=== PATIENT | female | born 1975 | race Caucasian/White ===

== ENCOUNTER 2024-10-31 06:26 | Day surgery (SDC) | payer OTHER, SELFPAY ==
[2024-10-31] VITALS (10 sets, daily range): BP systolic 118–151; BP diastolic 76–111; PULSE 60–83; RESP 16; TEMP 36.7–36.8; O2SAT 95–99; BMI 33.6
[2024-10-31] MEDS: BUPIVACAINE 0.5 %/EPI 1:200K INJECTION (06:33)
[2024-10-31] MEDS: LIDOCAINE 1% MDV INJECTION (06:33)
--- NOTE | 2024-10-31 07:27 | W.PM.H&PU ---
History & Physical Update History & Physical Update H&P Reviewed and patient assessed: No changes noted
--- NOTE | 2024-10-31 07:28 | PM.ORPRC ---
Procedure Note Date of procedure: 10/31/24 Procedure: PREOPERATIVE DIAGNOSIS: 1. Right carpal tunnel syndrome POSTOPERATIVE DIAGNOSIS: 1. Right carpal tunnel syndrome PROCEDURE: 1. Right open carpal tunnel release SURGEON: Amos Valdez MD. METALLURGICAL ENGINEERING TEACHER: Ivone Le P.A.-C. An assistant child care teacher was critical for this case to aid in patient positioning, tissue retraction, limb manipulation/positioning, and closure. ANESTHESIA: Local anesthetic IMPLANTS: None ESTIMATED BLOOD LOSS: 3 mL TOURNIQUET: 4 min at 250 mmHg COMPLICATIONS: None INDICATIONS: The patient is a pleasant 48-year-old female with history of right hand numbness, tingling, and pain. EMG and nerve conduction studies were consistent with moderate carpal tunnel syndrome. Symptoms were not improving with conservative treatment, and patient elected to proceed with surgical intervention consisting of right carpal tunnel release. Prior to surgery, the risks and benefits of the procedure were discussed with patient, all questions were answered, and informed consent was obtained. DESCRIPTION OF PROCEDURE: Patient was seen preoperatively and operative site was marked. The subcutaneous tissues overlying the right carpal tunnel were injected with a combination of 1% lidocaine with epinephrine and 0.5% bupivacaine. Patient was then brought to the operating room and placed in the supine position on the OR table. A tourniquet was placed on the patient's right arm and right upper extremity was prepped and draped in usual sterile fashion. A surgical time-out was performed confirming patient name, procedure, and location. A skin incision measuring approximately 3-4 cm was made in line with the ring finger extending from the distal wrist flexion crease to Barone's cardinal line. Blunt dissection was used to dissect through subcutaneous tissues and palmar fascia. To allow for better visualization, the extremity was elevated exsanguinated Esmarch and tourniquet was inflated to 250 mmHg. Transverse carpal ligament was identified and was sharply incised proximally with care taken to protect the underlying median nerve. The transverse carpal ligament was then sharply divided along its ulnar border using tenotomy scissors and a [place]ag[place] blade with care taken to protect the underlying median nerve. Once the transverse carpal ligament was divided, the antebrachial fascia was released proximally. The wound was then irrigated with normal saline, and the tourniquet was released. Total tourniquet time was for minutes. Hemostasis was achieved with bipolar electrocautery. The skin incision was closed with 4-0 nylon horizontal mattress sutures, and a sterile dressing was applied. Patient was then transferred to the recovery room in stable condition. POSTOPERATIVE PLAN: 1. Patient will be discharged to home day of surgery. 2. Ice and elevation as needed for pain and swelling. 3. Tylenol and/or ibuprofen as needed for pain. 4. They were given instructions for wound care and finger range of motion exercises. 5. Return to the clinic for follow-up evaluation in 10-14 days for wound check and suture removal.
--- NOTE | 2024-10-31 07:46 | SUR.PREOP ---
SAME DAY SURGERY LOCAL INJECTION SITE VERIFICATION WAS PERFORMED BY SURGEON/PA AND PATIENT PRIOR TO LOCAL ANESTHETIC BEING INJECTED TO OPERATIVE SITE.
[2024-10-31] MEDS: ETHYL CHLORIDE 1 APPLICATION 1 APPLIC TOPICAL (07:50)
[2024-10-31] MEDS: BACITRACIN OINTMENT BULK TUBE 1 APPLIC TOPICAL (08:05)
== END 2024-10-31 08:31 | disposition home or self-care (01) ==
PROVIDERS: PCP Physician Assistant Medical; Visit Provider Orthopaedic Surgery
PROC: (CPT 64721; principal; 2024-10-31 07:30)
DX: G56.01 Carpal tunnel syndrome, right upper limb (principal)
CPT/HCPCS: 64721; J2003; J3490

== ENCOUNTER 2024-12-28 06:22 | Day surgery (SDC) | payer BC, SELFPAY ==
[2024-12-28] VITALS (8 sets, daily range): BP systolic 118–134; BP diastolic 77–93; PULSE 58–80; RESP 16–18; TEMP 36.5; O2SAT 94–100; BMI 31.3
--- OUTSIDE RECORDS SUMMARY | 2024-12-28 06:24 | XMS_ITS | Clinical Summary ---
Author Organization [employer] [facility] Address [place], [place] [address] Care Team Providers Care General Laborer Name Role Phone Carmen Combs Primary Care Provider Allergies Active Allergy Reactions Criticality Noted Date Comments Prednisone Itching 06/06/2012 Medications * This document contains information received from the source organization and may not represent a complete record from that organization. levothyroxine (SYNTHROID) 88 mcg tabletIndications: Hypothyroidism (acquired) TAKE ONE TABLET BY MOUTH EVERY DAY BEFORE BREAKFAST 90 Tablet 2 4 Active lisinopriL (PRINIVIL; ZESTRIL) 5 mg tabletIndications: HTN (hypertension) TAKE ONE TABLET BY MOUTH ONCE DAILY 90 Tablet 1 4 Active cloNIDine HCL (CATAPRES) 0.1 mg tabletIndications: Alcoholism (HC),Alcohol withdrawal syndrome without complication (HC) Take 1 Tablet (0.1 mg) by mouth three times daily. 60 Tablet 4 Active traZODone (DESYREL) 50 mg tabletIndications: Insomnia, idiopathic Take 1-2 Tablets (50-100 mg) by mouth at bedtime. 60 Tablet 4 Active ondansetron (ZOFRAN ODT) 4 mg disintegrating tabletIndications: Nausea Place 1 Tablet (4 mg) on the tongue every 8 hours if needed for Nausea/Vomiti ng. 30 Tablet 2 4 Active Active Problems Problem Noted Date Diagnosed Date Severe episode of recurrent major depressive disorder, without psychotic features 03/14/2023 Morbid obesity with BMI of 40.0-44.9, adult 01/2022 Linda's thyroiditis 08/28/2021 Vitamin D deficiency 02/19/2011 Tobacco use disorder 01/13/2009 Papanicolaou smear of cervix with atypical squamous cells of undetermined significance (ASC-US) 11/15/2008 Major depressive disorder, recurrent episode, un specified 05/29/2007 Anxiety state, unspecified 05/29/2007 History of amphetamine abuse 05/29/2007 Amphetamine and psychostimulant dependence 05/29 ASCUS with positive high risk HPV cervical 11/28 Overview (11/15/2022): 05/2006 ASCUS/HPV+ 06/2006 [place]: Suspicious for HPV 11/2006 ASCUS/HPV+ 06/2007 NIL 11/2008 NIL 09/2012 NIL 09/2015 NIL 05/2019 NIL/HPV negative 09/2022 NIL/HPV negative. Plan: Pap/HPV due 09/2025. Resolved Problems Problem Noted Date Diagnosed Date Resolved Date , supervision for, high-risk 11/15/2008 10/03/2012 Amphetamine dependence; in r emission for 3 and 1/2 years 05/29/2007 12/17/2021 Immunizations Name Administration Dates Next Due Hepatitis B (Adult) 09/07/2017,04/05/2017,1995 MMR 05/31/1990,11/26/1981 Td (Age >=7 Years) 04/01/2003,05/31/1990 Td, Preservative Free (age >= 7 Years) 5 Tdap 10/03/2012 Family History Medical History Relation Name Comments Suicidality Brother Cancer Father adenocarcinoma Hypertension Father Cancer-breast Maternal Aunt Heart attack Mother Stroke Mother 07-19-13 Cancer-breast Paternal Grandmother Cancer-ovarian No Family History Relation Name Status Comments Brother Father (Age 62) lung cance r Maternal Aunt Mother Paternal Grandmother Social History Tobacco Use Types Packs/Day Years Used Date Smoking Tobacco: Former Cigarettes 0.5 15 1 12/30/1996 - 10/29/2012 Smokeless Tobacco: Never Tobacco Cessation:Counseling Given: Yes Comments:Quit 6 years ago Alcohol Use Standard Drinks/Week Comments Yes 3 (1 standard drink = 0.6 oz pur e alcohol) PHQ-2 Answer Date Recorded PHQ-2 TOTAL SCORE 6 07/23/2024 Social Connections Answer Date Recorded Do you often feel lonely or isolated from those around you? 0 06/25/2024 Financial Resource Strain Answer Date R ecorded Difficulty of Paying Living Expenses 3 06/25/2024 Difficulty of Paying Living Expenses Not on file 06/25/2024 Food Insecurity Answer Date Recorded Do you worry your food will run out before you are able to buy more? 1 06/25/2024 Transportation Needs Answer Date Record ed Does lack of transportation keep you from medica l appointments? 1 06/25/2024 Does lack of transportation keep you from work, meetings or getting things that you need? 1 06/25/2024 Housing Stability Answer Date Recorded What is your housing situation today? 1 06/25/2024 Utilities Answer Date Recorded Do you have trouble paying f or utilities (for example, heat, electricity, water, phone)? 1 06/25/2024 Comments No Sex and Gender Information Value Date Recorded Sex Assigned at Not on file Legal Sex Female 6:21 AM THEATRE PROGRAM DIRECTOR Gender Identity Not on file Sexual Orientation Not on file Occupation Industry Job Start Date Job End Date unemployed Not on file Not on file Not on file Obstetrics History Para Term AB IAB SAB Ectopic Multiple Livin g Live Births 4 3 3 1 1 3 Date Outcome GA Total Labor Labor/2nd/3rd Weight Sex Type Anes PTL Stephany A1 A5 Name Clin 9 Term 38w 0d 15h 00m/ 3.43 kg (7 lb 9 oz) F Vag 7 9 3 Term 39w 0d 7h 00m/ 4.35 kg (9 lb 9.4 oz) M Vag 6 8 Comments:shoulder dyst ocia, nuchal cord. 4th degree laceration 4 SAB 9 Term 39w 0d 3.32 kg (7 lb 5 oz) F Vag 7 8 Comments:fractured cla vicle Last Filed Vital Signs Vital Sign Reading Time Taken Comments Blood Pressure 137/89 09/12/2024 3:27 PM CDT Pulse 62 09/12/2024 3:27 PM CDT Temperature 36.4 C (97.5 F) 01/29/2024 12:32 PM CDT Respiratory Rate 18 01/29/2024 12:32 PM CDT Oxygen Saturation 98% 01/29/2024 12:32 PM CDT Inhaled Oxygen Concentration - - Weight 114.3 kg (252 lb) 09/12/2024 3:27 PM CDT Height 170.2 cm (5' 7) 08/05/2023 11:18 AM CDT Body Mass Index 39.47 08/05/2023 11:18 AM CDT Plan of Treatment Health Maintenance Due Date Last Done Comments Pneumococcal series for age 6-49 (1 of 2 - PCV) 1995 Tetanus booster 10/03/2022 10/03/2012, 07/16, 04/01/2003, Additional history exists COVID-19 vaccine series ( season) 2024 Influenza for age 9-49 07/15/2024 BMI (ht and wt on same day) for age 18+ 08/05/2024 08/05/2023, 06/14/2023, 03/14/2023, Additional history exists Depression screening for age 12+ 07/25/2025 07/25/2024, 07/23/2024, 07/06/2023, Additional history exists Mammogram for age 45-75 08/03/2025 08/03/20, 04/12/2023, 01/22/2022, Additional history exists Pap test for age 21-65 10/04/2025 , 10/04/2022, 06/06/2019, Additional history exists Lipids for age 45-75 02/17/2027 02/17/2022, 11/30/2019, 10/17/2018, Additional history exists Colonoscopy through age 75 11/19/203211/19, 11/19/2022, 11/19/2022, Additional history exists Tdap Completed 10/03/2012 HIV for age 15-65 Completed 08/05/2023, , 11/15/2008 Hepatitis C screening for ag e 18-79 Completed 08/05/2023, 10/04/2022 Procedures Procedure Name Priority Date/Time Associated Diagnosis Comments XR MAMMO MAGALIS BILAT SCREEN Routine 08/03/2024 3:49 PM CDT Visit for screening mammogram ANTI HIV /2 Routine 08/05/2023 12:12 PM CDT Screen for STD (sexually transmitted disease) ANTI HCV Routine 08/05/2023 12:12 PM CDT Screen for STD (sexually transmitted disease) COLONOSCOPY SCREENING Routine 11/19/2022 8:46 AM THEATRE PROGRAM DIRECTOR Chronic diarrhea Screening for colon cancer HPV HIGH RISK Routine 10/04/2022 9:58 AM THEATRE PROGRAM DIRECTOR Screening for cervical cancer LIPID PANEL W REFLEX MEASURED LDL Routine 02/17/2022 3:39 PM CDT Screening cholesterol level from Last 3 Months or Most Recently Relevant to Health Maintenance Results * XR MAMMO MAGALIS BILAT SCREEN (08/03/2024 3:49 PM CDT) Anatomical Region Laterality Modality BREASTS, Breast Left, Breast Right Bilateral Mammography Impressions 08/05/2024 9:33 AM CDT There is no radiographic evidence for malignancy. Recommend annual mammograms. MAMMOGRAM ASSESSMENT: ACR 1 Negative PATIENTS: You will also receive a letter with your examination results in an easy to read format. If you have questions about your results, please contact your referring provider. Narrative 08/05/2024 9:33 AM CDT For Patients: As a result of the Century Cures Act, medical imaging exams and procedure reports are released immediately into your electronic medical record. You may view this report before your referring provider. If you have questions, please contact your health care provider. XR MAMMO MAGALIS BILAT SCREEN [[id number]] CLINICAL HISTORY: This is an asymptomatic 48 y.o. patient. INDICATION FOR EXAM: Mammogram Screening. TECHNIQUE: CC & MLO views were obtained. This study was evaluated with the assistance of Computer-Aided Detection. Breast Tomosynthesis was used in interpretation. COMPARISON FILM: Yes 04/12/23 [employer] [facility] 01/22/22 [facility] FINDINGS: There are scattered areas of fibroglandular density. There are no dominant masses, suspicious micro calcifications or areas of architectural distortion. Carmen HOWARD MAMMO Final R esult * ANTI HCV (08/05/2023 12:12 PM CDT) HEPATITIS C ANTIBODY Non-Reacti ve Non-React jose 08/06/2023 8:34 AM CDT [facility] Comment:Please note, per www .CDC.gov: If a patient is known to be at high risk of HCV infection, or is symptomatic, and the physician's suspicion of HCV infection is high, HCV RNA testing is often employed and is of diagnostic value, even after an initial negative anti-HCV test result. Blood BLOOD SPECIMEN / Unknown Venipuncture / Unknown 08/05/2023 12:12 PM CDT 08/05/2023 12:13 PM CDT Carmen HOWARD SEND OUTS Final R esult Performing Organization Address [facility] Co de Phone Number [facility] [address] [place] [phone], [place] * ANTI HIV 1/2 (08/05/2023 12:12 PM CDT) Pathologist [facility] HIV-1/HIV-2 SCREEN Non-Reacti ve Non-Reacti ve 08/05/2023 11:13 PM CDT [facility] Comment:HIV-1 p24 and HIV-1/ HIV-2 Ab Not Detected. Blood BLOOD SPECIMEN / Unknown Venipuncture / Unknown 08/05/2023 12:12 PM CDT 08/05/2023 12:13 PM CDT Carmen HOWARD SEND OUTS Final R esult Performing Organization Address [facility] Co de Phone Number [facility] [address] [place] [id number], [place] * COLONOSCOPY (11/19/2022 9:15 AM THEATRE PROGRAM DIRECTOR) 11/19/2022 9:15 AM THEATRE PROGRAM DIRECTOR Narrative Transcriptions Colin Fish MD - 11/19/2022 9:48 AM CST Patient Name: Georgie Mehta Procedure Date: 11/19/2022 Gender: Female Date of : 1975 Admit Type: Outpatient Procedure: Colonoscopy Proceduralist: Colin Fish MD , Melly Pittman RN(Nurse), Carmenza Lemon (Nurse) Referring MD: Praveena Ashby Indications/Pre-Op Diagnosis: Screening for colorectal malignant neoplasm, Incidental diarrhea noted Medications: Fentanyl 100 micrograms IV, Midazolam 4 mgIV, The level of sedation administered wasmoderate Procedure Description: The patient had risks, benefits and alternatives explained to andgave informed consent. The patient had a stable cardiopulmonary status and judged an adequate candidate for conscious sedation. The endoscope [id number] was passed through the anus andadvanced to 8 cm into the ileum. The colonoscopy was performed without difficulty. The patient tolerated the procedure well. The quality ofthe bowel preparation was good. The terminal ileum, ileocecal valve, appendiceal orifice, and rectum were photographed. Complications: No immediate complications. Estimated Blood Loss & Specimen: Estimated blood loss: none. Findings: The perianal and digital rectal examinations were normal. The exam was otherwise without abnormality on direct and retroflexion views. Biopsies for histology were taken with a cold forceps from the entire colon for evaluation of microscopic colitis. Impressions/Post-Op Diagnosis: - The examination was otherwise normal on direct and retroflexionviews. - Biopsies were taken with a cold forceps from the entire colon for evaluation of microscopic colitis. Recommendation: - Patient has a contact number available for emergencies. The signsand symptoms of potential delayed complications were discussed with the patient. Return to normal activities tomorrow. Written discharge instructions were provided to the patient. - Resume previous diet. - Continue present medications. - Repeat colonoscopy is recommended. The colonoscopy date will be determined after pathology results from today's exam become available for review. - Use Questran at 1 packet (4 grams) PO daily if biopsies are normalfor 2 months. Moderate Sedation: A time out was performed before the procedure. Moderate (conscious) sedation was administered by the endoscopy nurse and supervised bythe endoscopist. The following parameters were monitored: oxygensaturation, heart rate, blood pressure, EKG, CO2, respiratory rate, adequacy of pulmonary ventilation and reponse to care. Please refer to the patient's medical record flowsheets and nursing notes for moderate sedation details. Total physician intraservice time was 12 minutes. Colin Fish MD 11/19/2022 9:48:11 AM This report has been signed electronically. Note Initiated On: 11/19/2022 9:15 AM Procedure Code(s): --- Professional --- 70254, Colonoscopy, flexible; with biopsy, single or multiple Diagnosis Code(s): --- Professional --- Z12.11, Encounter for screening formalignant neoplasm of colon CPT copyright 2020 [employer]. All rights reserved. The codes documented in this report are preliminary and upon registered nurse obstetrics reviewmay be revised to meet current compliance requirements. Scope In: 9:31:47 AM Scope Withdrawal Time 0 hours 8 minutes 3 seconds Scope Out: 9:42:39 AM us Colin Fish MD PROCEDURE ORD Final Res ult * HPV HIGH RISK (10/04/2022 9:58 AM THEATRE PROGRAM DIRECTOR) TYPE 16 Negative Negative 10/11/2022 11:40 AM THEATRE PROGRAM DIRECTOR [facility] TYPE 18 Negative Negative 10/11/2022 11:40 AM THEATRE PROGRAM DIRECTOR [facility] OTHER HIGH RISK TYPES Negative Negative 10/11/2022 11:40 AM THEATRE PROGRAM DIRECTOR [facility] Other (Cervical) Non-Blood / Unknown 10/04/2022 9:58 AM THEATRE PROGRAM DIRECTOR 10/05/2022 9:39 AM THEATRE PROGRAM DIRECTOR Narrative [facility] - 10/11/2022 11:40 AM THEATRE PROGRAM DIRECTOR HPV types 16, 18, 31, 33, 35, 39, 45, 51, 52, 56, 58, 59, 66 and 68 DNA were undetectable or below the pre-set threshold. Methodology: MYOMO [employer] 4800 HPV Test Carmen HOWARD MICROBIOLOGY Final R esult [facility] [address] [place] [address], * (ABNORMAL) LIPID PANEL W REFLEX MEASURED LDL (02/17/2022 3:39 PM CDT) CHOLESTEROL,TOTAL 211(H) 100 - 199 mg/dL 02/18/2022 1:03 AM CDT [facility] TRIGLYCERIDES 119 <150 mg/dL 02/18/2022 1:03 AM CDT [facility] HDL CHOLESTEROL 60 >40 mg/dL 1:03 AM CDT [facility] NON-HDL CHOLESTEROL 151(H) <145 mg/dl 02/18/2022 1:03 AM CDT [facility] CHOL/HDL RATIO 3.52 <4.50 02/18/2022 1:03 AM CDT [facility] LDL CHOLESTEROL 127 <=130 mg/dL 02/18/2022 1:03 AM CDT [facility] VLDL CHOLESTEROL 24 <=30 mg/dL 02/18/2022 1:03 AM CDT [facility] PROVIDER ORDERED STATUS RANDOM 02/18/2022 1:03 AM CDT [facility] Blood BLOOD SPECIMEN / Unknown Venipuncture / Unknown 02/17/2022 3:39 PM CDT 02/17/2022 3:39 PM CDT Carmen HOWARD CHEMISTRY Final R esult [facility] [address] [place] [address], [place] from Last 3 Months or Most Recently Relevant to Health Maintenance Insurance [facility] [address] [id number] [phone] (Home) ATTN: GEORGE PICKARD [phone] [phone] Care Teams General Laborer Relationship Specialty Start Date End Date Carmen Combs PA [address] [facility] [id number] PCP - General Family Practice 10/03/15
[2024-12-28] MEDS: LIDOCAINE 1%-EPI 1:100,000 20 ML INFILTRATI (07:10)
[2024-12-28] MEDS: BUPIVACAINE 0.5% 30 ML INJECTION (07:10)
--- NOTE | 2024-12-28 07:15 | W.PM.H&PU ---
History & Physical Update History & Physical Update H&P Reviewed and patient assessed: No changes noted
--- NOTE | 2024-12-28 07:16 | PM.ORPRC ---
Procedure Note Date of procedure: 12/28/24 Procedure: PREOPERATIVE DIAGNOSIS: 1. Left carpal tunnel syndrome POSTOPERATIVE DIAGNOSIS: 1. Left carpal tunnel syndrome PROCEDURE: 1. Left open carpal tunnel release SURGEON: Amos Valdez MD. TALLIER: Ivone Le P.A.-C. An assistant statistician was critical for this case to aid in patient positioning, tissue retraction, limb manipulation/positioning, and closure. ANESTHESIA: Local anesthetic IMPLANTS: None ESTIMATED BLOOD LOSS: 1 mL TOURNIQUET: 9 min at 250 mmHg COMPLICATIONS: None INDICATIONS: The patient is a pleasant 41-year-old female with history of numbness and tingling in the median nerve distribution of her left hand and electrodiagnostic studies consistent with moderate left carpal tunnel syndrome. Symptoms were not improving with conservative treatment, and patient elected to proceed with surgical intervention consisting of left carpal tunnel release. Prior to surgery, the risks and benefits of the procedure were discussed with patient, all questions were answered, and informed consent was obtained. DESCRIPTION OF PROCEDURE: Patient was seen preoperatively and operative site was marked. The subcutaneous tissues overlying the left carpal tunnel were injected with a combination of 0.5% bupivacaine and 1% lidocaine with epinephrine. Patient was then brought to the operating room and placed in the supine position on the OR table. A tourniquet was placed on the patient's left arm, and left upper extremity was prepped and draped in usual sterile fashion. A surgical time-out was performed confirming patient name, procedure, and location. The operative extremity was then elevated and exsanguinated with an Esmarch, and the tourniquet was inflated to 250 mmHg. A skin incision measuring approximately 3-4 cm was made in line with the ring finger extending from the distal wrist flexion crease to Barone's cardinal line. Blunt dissection was used to dissect through subcutaneous tissues and palmar fascia. Transverse carpal ligament was identified and was sharply incised proximally with care taken to protect the underlying median nerve. The transverse carpal ligament was then sharply divided along its ulnar border using tenotomy scissors and a [place] blade with care taken to protect the underlying median nerve. Once the transverse carpal ligament was divided, the antebrachial fascia was released proximally. The wound was then irrigated with normal saline, and the tourniquet was released. Total tourniquet time was none minutes. Hemostasis was achieved with bipolar electrocautery. The skin incision was closed with 4-0 nylon horizontal mattress sutures, and a sterile dressing was applied. Patient was then transferred to the recovery room in stable condition. POSTOPERATIVE PLAN: 1. Patient will be discharged to home day of surgery. 2. Ice and elevation as needed for pain and swelling. 3. Tylenol and/or ibuprofen as needed for pain. Tramadol for breakthrough pain. 4. They were given instructions for wound care and finger range of motion exercises. 5. Return to the clinic for follow-up evaluation in 10-14 days for wound check and suture removal.
--- NOTE | 2024-12-28 07:29 | SUR.PREOP ---
SAME DAY SURGERY LOCAL INJECTION SITE VERIFICATION WAS PERFORMED BY SURGEON/PA AND PATIENT PRIOR TO LOCAL ANESTHETIC BEING INJECTED TO OPERATIVE SITE.
== END 2024-12-28 08:20 | disposition home or self-care (01) ==
LOC: OR 06:22
PROVIDERS: PCP Physician Assistant Medical; Visit Provider Orthopaedic Surgery
PROC: (CPT 64721; principal; 2024-12-28 07:30)
DX: G56.02 Carpal tunnel syndrome, left upper limb (principal)
CPT/HCPCS: 64721; J0665

== ENCOUNTER 2025-01-10 16:23 | Outpatient (RCR) | payer BC, SELFPAY ==
--- NOTE | 2025-01-10 18:19 | OT.OPOE ---
OT Outpatient Ortho Eval OT Outpatient Ortho Eval* Start: 01/10/25 15:26 Freq: Status: Active Protocol: Document 01/10/25 15:27 AMB (Rec: 01/10/25 18:15 AMB [id number]) E-signed By Reba Colón, OTR/L, CLT, ENCEPHALOGRAPHER OT OP Ortho Eval Details Complexity Complexity Low Insurance Information Insurance Information Blue Cross/Blue Shield Other Insurance [employer]BS [place] [address] Insurance Information Comments 1 visit ordered Cert due 04/10/25 Outpatient History/Precautions Current Condition/Medical Diagnosis Referring Provider Ivone Le PA-C Medical Diagnoses G56.03 BUE CTS Treatment Diagnosis R53.1 Weakness BUE M25.649 Stiffness BUE hands Date of Onset DOS: LUE 12/28/24, RUE 10/31/24 Other Conditions PMH (Copied from medical chart ): Active Problems (Reviewed @ 11:16 by Ashley Tamez ~ LAT ATC) Bilateral carpal tunnel syndrome (Acute) x 3+ years (right worse than left) G56.03 - Carpal tunnel syndrome, bilateral upper limbs (ICD-10) Surgical History (Updated @ 08:25 by Violeta Skelton ~ SALON SALES CONSULTANT, SALON SALES CONSULTANT) History of carpal tunnel surgery of left wrist () Z98.890 - Other specified postprocedural states (ICD-10) History of carpal tunnel surgery of right wrist () Z98.890 - Other specified postprocedural states (ICD-10) History of cholecystectomy Z90.49 - Acquired absence of other specified parts of digestive tract (ICD-10) History of tonsillectomy Z90.89 - Acquired absence of other organs (ICD-10) Medical/Functional History Medical History Reviewed Yes Prior Level of Function/Mobility Pt had been having CTS sxs in E for over a year. 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 Pt states she's also been struggling with weakness, tends to drop things with her right hand. She feels the shooting pains are different than the nerve pain she had prior to her CTR. Pt also had CTR on her LUE 2 weeks ago, she feels this side is doing better. Goniometric Comments Goniometric Comments Goniometric Comments 01/10/25 AROM of the RUE wrist flexion is 60, ext is 48, UD and RD are both 25. AROM of the LUE wrist flexion is 65, ext is 50, RD is 30, UD is 25. Hand Pinch/Human Factors Scientist Strength Hand Pinch/Human Factors Scientist Strength Hand Pinch/Human Factors Scientist Strength Left Hand,Right Hand Left Hand Human Factors Scientist Strength Position 1 in Elbow 15 Flexion (lbs) Lateral Pinch Strength (lbs) 9 Three Point Pinch (lbs) 8 Right Hand Human Factors Scientist Strength Position 1 in Elbow 35 Flexion (lbs) Lateral Pinch Strength (lbs) 11 Three Point Pinch (lbs) 12 OT Objective Data Hand Hand Dominance Right Skin/Wounds/Edema Comments 01/10/25 Incisional area on the RUE is fully closed, no s/s of infection. Scar is thick and very hypersensitive. Incisional are on the LUE still has presence of surgical glue and scabs, sutures were just removed yesterday. No drainage, no s/s of infection. Area around right hand incision is quite firm, somewhat adhered. Sensation Sensation Assessment Summary Comments 01/10/25 Pt denies any paresthesia in her hands but is instead having random, sharp, shooting pain in her right hand. Incisional are on the RUE is very hypersensitive to various textures as well as pressure, especially light pressure. Pt is not able to tolerate light swipes with naldo cloth towel or very light fingertip taps. Pt was not able to tolerate IASTM with Graston tool, even very light pressure. OT Problems Problems Problems Decreased Strength,Decreased Range of Motion,Decreased Dexterity,Pain,Sensory Sensitivity,Lifting,Gripping, Pinching Other Problems Writing,Opening Containers, Computer,Fasteners Patient Potential Good Occupational Therapy Treatment Plan - OP Potential Rehabilitation Potential Good Set Goals Goals Set with Patient Yes Goals Goals 1. Pt will be independent and compliant with HEP in order to resume full, pain-free use of the involved UE. 3 weeks 2. Pt will demonstrate full, pain-free AROM of the involved UE in order to improve ability to grasp and hold. 6 weeks 3. Pt will verbalize the absence of sharp, shooting pains in her RUE in order to resume ability to use her RUE for all ADLs and IADLs without fear of dropping items or hurting her hand. 7 weeks. 3. Pt will demonstrate pain- free md psychiatry and pinch strength comparable to the uninvolved side in order to improve functional grasp, hold, reach, and lifting ability needed to complete self-care, leisure tasks, and work activities. 8 weeks. Treatment Plan Treatment Plan Evaluation,Edema Control,Joint Mobilization,Manual Therapy, Ultrasound,Therapeutic Exercise,Therapeutic Activities,Self Care/Home Management,Education Expected Frequency Comments One visit per PA recommendations. Pt stated she will work on her own for a while, if she feels she needs F/U OT, she will call PA for additional orders. Home Program Home Program Home Program Initiated Home Program Specifics Pt was provided training and practice in HEP for differential tendon glides, wrist flexor and extensor stretch, scar tissue mobilization utilizing circular, horizontal, and zig zag strokes, scar mobilization with rubber ball, and self scar tissue mobilization. Pt was also provided with instructions in regard to desensitization techniques using various textures at home including towel, cotton ball, hook velcro, loop velcro, etc . Initiation of light hand strengthening with light putty for md psychiatry, tip pinch and lateral pinch on the right, instructed to wait 2 weeks to initiate on the left. Following demo, pt is able to complete these techniques with minimal cues. She was given written instructions for all of the above as well as TP and rubber ball for use at home. Certification Certification Statement I Certify That: Therapy Services Provided, Therapy Plan Established, Therapy Plan Reviewed Certification Information Clinic ID # [id number] Initial Certification Date 01/10/25 Recertification Due Date 04/10/25 Provider Signature Required Yes Provider Signature Shows Agreement With POC & Medical Necessity Physician NPI Number Write NPI# Here Physician Comment/Change Comment or Changes Physician Signature & Date Requested Please Sign/Date Here
== END 2025-05-10 23:59 | disposition home or self-care (01) ==
PROVIDERS: PCP Physician Assistant Medical; Visit Provider Physician Assistant Surgical
DX: G56.03 Carpal tunnel syndrome, bilateral upper limbs (principal); Z51.89 Encounter for other specified aftercare
CPT/HCPCS: 97035; 97110; 97165; X5282

== ENCOUNTER 2025-04-18 14:07 | Outpatient (CLI) | payer BC, SELFPAY ==
--- NOTE | 2025-04-18 14:00 | CRLHL7_ITS ---
For Patients: As a result of the Century Cures Act, medical imaging exams and procedure reports are released immediately into your electronic medical record. You may view this report before your referring provider. If you have questions, please contact your health care provider. INDICATION: Perimenopause COMPARISON: None. TECHNIQUE: 2D edward-scale and color Doppler images were acquired of the pelvis using a transabdominal and transvaginal approach. Transvaginal imaging performed to better visualize the endometrial stripe and ovaries. FINDINGS: Sonographic images demonstrate a normal size and smooth outer contour of the uterus. Uterus measures 10.7 cm in length by 4.8 cm in AP diameter by 6.3 cm in transverse dimension. No uterine fibroid. The endometrial lining measures or mm in composite thickness. The right ovary is not visualized, likely due to bowel loops. The left ovary measures 3.7 x 1.9 x 2.9 cm. The left ovary demonstrates normal arterial and venous blood flow on color Doppler analysis. There are no suspicious fluid collections within the cul-de-sac. IMPRESSION: Endometrial thickness 4 millimeters. No endometrial fluid or uterine fibroid. Dictated by Baldev Guallpa MD @ 04/22/2025 5:52:58 AM (Electronically Signed)
== END 2025-04-18 14:08 | disposition home or self-care (01) ==
LOC: US 14:08
PROVIDERS: PCP Physician Assistant Medical; Visit Provider Physician Assistant Medical
DX: N95.1 Menopausal and female climacteric states (principal); R93.89 Abnormal findings on diagnostic imaging of other specified body structures; N92.4 Excessive bleeding in the premenopausal period
CPT/HCPCS: 76830; 76856

== ENCOUNTER 2025-08-23 11:40 | Outpatient (CLI) | payer BC, SELFPAY | END 2025-08-23 11:41 | disposition home or self-care (01) | LOC: NFLDREF 11:41 | PROVIDERS: PCP Physician Assistant Medical; Visit Provider Registered Nurse | DX: N92.0 Excessive and frequent menstruation with regular cycle (principal) | CPT/HCPCS: 84439; 84443 ==